=== PATIENT | male | born 1995 | race Caucasian/White ===

== ENCOUNTER 2017-03-12 13:47 | Emergency (ER) | payer SELFPAY ==
[~2017-03-12] VITALS: Ht 185.4 cm; Wt 72.7 kg
[2017-03-12 13:49] VITALS: TEMP 97.8
[2017-03-12] MEDS ORDERED: UNABLE TO ASSESS (13:52)
[2017-03-12 15:50] VITALS: BP 133/87; PULSE 78
== END 2017-03-12 15:55 | disposition home or self-care (01) ==
LOC: COL.ER 13:47
DX: T40.8X4A Poisoning by lysergide [LSD], undetermined, initial encounter (principal)